=== PATIENT | male | born 1955 ===

== ENCOUNTER 2020-09-12 12:33 | Outpatient (CLI) | payer OTHER ==
[~2020-09-12 12:33] MED LIST: ASA325 MG PO; CIALIS5 MG PO; COREG CR40 MG PO; COZAAR100 MG PO; CRESTOR10 MG PO; FOLIC ACID1 MG PO; METFORMIN HCL500 MG PO; OMEPRAZOLE20 MG PO; PEPCID40 MG PO; PLAVIX75 MG PO; VITAMIN D310000 UNIT PO
== END 2020-09-12 13:00 | disposition home or self-care (01) ==
LOC: NUCLEAR 12:33
PROVIDERS: ATTEND Internal Medicine Cardiovascular Disease
DX: I10 Essential (primary) hypertension (principal)